=== PATIENT | male | born 1945 | race Caucasian/White ===

== ENCOUNTER 2024-12-26 06:58 | Emergency (ER) | payer MEDICARE, SELFPAY ==
[2024-12-26] VITALS (21 sets, daily range): BP systolic 123–154; BP diastolic 79–99; PULSE 88–101; TEMP 37; O2SAT 87–98; BMI 29.5
--- NOTE | 2024-12-26 07:15 | XR_ITS ---
The [address] [address] Patient Name: SARAH SCHULTZ MRN: [id number] date: 1945 Sex: M Assigned Patient Location: ED.MAIN Current Patient Location: ED.MAIN Accession/Order Number: [id number] Exam Date: 12/26/2024 07:52 Report Date: 12/26/2024 08:40 At the request of: GAVINO BECERRA MD Procedure: XR shoulder LT min 2V CLINICAL DATA: Unwitnessed fall PORTABLE AP ERECT CHEST 0800 hours COMPARISON: None There is shallow inspiration. There is also slight elevation of the right hemidiaphragm. Bibasilar atelectasis and/or scarring is noted. There is also suspected scarring at the right apex where apparent nodularity likely relates to asymmetric hypertrophy at the first costochondral junction. No sizable effusion or pneumothorax is seen. The heart is within normal limits for size. The aorta is mildly ectatic. No vascular congestion is identified. The bony thorax, as visualized appears intact. XR/XR shoulder LT min 2V IMPRESSION: ATELECTASIS AND SCARRING. LEFT SHOULDER - 2 views COMPARISON: None AP and Y views were obtained. There is osteopenia. No acute fracture or dislocation is noted. There is mild hypertrophy at the acromioclavicular and inferior glenohumeral joints. There is also minor degenerative change and adjacent soft tissue calcification at the greater tuberosity. There is apparent narrowing of the acromiohumeral interval and rotator cuff disease is not excluded basis of this exam. IMPRESSION: OSTEOPENIA AND DEGENERATIVE CHANGES. NO ACUTE BONY INJURY. Impression dictated by: Luda Pérez M.D. 12/26/2024 8:40 AM Dictation Location: [employer] Electronically authenticated by: [id number] Y Date: 12/26/2024 08:40
--- NOTE | 2024-12-26 07:15 | ECG_ITS ---
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[employer]: : 1945 Requested By: [id number] Order Number: [id number] Reading MD: OPAL HAGEN Measurements Intervals [place] Rate: 44 P: 56 NM: 236 QRS: -46 QRSD: 80 T: 57 QT: 552 QTc: 503 Interpretive Statements 1130 Sinus bradycardia 1470 with occasional supraventricular premature complexes 1570 with occasional ventricular premature complexes 2231 First degree AV block 3333 Anterolateral myocardial infarction, probably old 3633 Inferior myocardial infarction, probably old 8102 Low QRS voltage in chest leads 9150 abnormal ECG No previous ECG available for comparison Electronically Signed On 12-28-2024 13:32:46 EDT by OPAL HAGEN
--- NOTE | 2024-12-26 07:15 | CT_ITS ---
The [address] [address] Patient Name: SARAH SCHULTZ MRN: [id number] date: 1945 Sex: M Assigned Patient Location: ER Current Patient Location: [facility] Accession/Order Number: [id number] Exam Date: 12/26/2024 07:52 Report Date: 12/26/2024 08:47 At the request of: GAVINO BECERRA MD Procedure: CT cervical spine wo con CLINICAL DATA: Unwitnessed fall CT BRAIN WITHOUT CONTRAST: COMPARISON: None TECHNIQUE: Contiguous axial unenhanced images were obtained through the brain. This CT exam was performed using one or more following dose reduction techniques: Automated exposure control, adjustment of the mA and/or kV according to patient size, or use of iterative reconstruction technique. FINDINGS: There is generalized atrophy. The ventricles are prominent though midline in position. Normal pressure hydrocephalus is not excluded. Chronic microvascular changes are noted. There are no additional areas of abnormal attenuation. There is no hemorrhage, mass effect or extra-axial collections. There is a lobulated mass arising from the sella and extending into the suprasellar region. There is also invasion of the cavernous sinus on the left. This measures at least 2.6 x 2.0 x 2.8 cm in size. It may be a pituitary macroadenoma. The calvarium is intact. There is a small amount of fluid within the right maxillary and sphenoid sinuses. There is also mucosal thickening involving ethmoid air cells bilaterally. There is some carotid siphon plaque. CT/CT head/brain wo con IMPRESSION: ATROPHY AND SMALL VESSEL ISCHEMIC CHANGES. VENTRICULAR ENLARGEMENT. NORMAL PRESSURE HYDROCEPHALUS IS NOT EXCLUDED AND CLINICAL CORRELATION IS SUGGESTED. POTENTIAL PITUITARY MACROADENOMA. SINUS DISEASE. NO ACUTE INTRACRANIAL TRAUMA. CT CERVICAL SPINE WITHOUT CONTRAST WITH 3D RECONSTRUCTIONS: COMPARISON: None TECHNIQUE: Spiral axial unenhanced images were obtained through the cervical spine. Sagittal, coronal and 3D volume-rendered reconstructions were also reviewed. This CT exam was performed using one or more following dose reduction techniques: Automated exposure control, adjustment of the mA and/or kV according to patient size, or use of iterative reconstruction technique. FINDINGS: Alignment is maintained in the sagittal plane. No acute fractures are identified. The disc spaces are uniform. There is mild endplate spurring and cystic change. Facet disease is visualized, right side worse than left. The atlantoaxial relationship is maintained and there is additional degenerative change and mild pannus. Prevertebral soft tissue prominence is related to tortuous carotid arteries with associated atherosclerotic disease. The upper imaged lungs show no contributory findings. IMPRESSION: Degenerative changes. NO ACUTE BONY INJURY. Impression dictated by: Luda Pérez M.D. 12/26/2024 8:47 AM Dictation Location: [place] [address] Electronically authenticated by: [id number] Y Date: 12/26/2024 08:47
--- NOTE | 2024-12-26 07:15 | XR_ITS ---
The [address] [address] Patient Name: SARAH SCHULTZ MRN: [id number] date: 1945 Sex: M Assigned Patient Location: ED.MAIN Current Patient Location: ED.MAIN Accession/Order Number: [id number] Exam Date: 12/26/2024 07:52 Report Date: 12/26/2024 08:40 At the request of: GAVINO BECERRA MD Procedure: XR shoulder LT min 2V CLINICAL DATA: Unwitnessed fall PORTABLE AP ERECT CHEST 0800 hours COMPARISON: None There is shallow inspiration. There is also slight elevation of the right hemidiaphragm. Bibasilar atelectasis and/or scarring is noted. There is also suspected scarring at the right apex where apparent nodularity likely relates to asymmetric hypertrophy at the first costochondral junction. No sizable effusion or pneumothorax is seen. The heart is within normal limits for size. The aorta is mildly ectatic. No vascular congestion is identified. The bony thorax, as visualized appears intact. XR/XR chest 1V IMPRESSION: ATELECTASIS AND SCARRING. LEFT SHOULDER - 2 views COMPARISON: None AP and Y views were obtained. There is osteopenia. No acute fracture or dislocation is noted. There is mild hypertrophy at the acromioclavicular and inferior glenohumeral joints. There is also minor degenerative change and adjacent soft tissue calcification at the greater tuberosity. There is apparent narrowing of the acromiohumeral interval and rotator cuff disease is not excluded basis of this exam. IMPRESSION: OSTEOPENIA AND DEGENERATIVE CHANGES. NO ACUTE BONY INJURY. Impression dictated by: Luda Pérez M.D. 12/26/2024 8:40 AM Dictation Location: [employer] Electronically authenticated by: [id number] Y Date: 12/26/2024 08:40
--- NOTE | 2024-12-26 07:15 | CT_ITS ---
The [address] [address] Patient Name: SARAH SCHULTZ MRN: [id number] date: 1945 Sex: M Assigned Patient Location: ER Current Patient Location: .[facility] Accession/Order Number: [id number] Exam Date: 12/26/2024 07:52 Report Date: 12/26/2024 08:47 At the request of: GAVINO BECERRA MD Procedure: CT cervical spine wo con CLINICAL DATA: Unwitnessed fall CT BRAIN WITHOUT CONTRAST: COMPARISON: None TECHNIQUE: Contiguous axial unenhanced images were obtained through the brain. This CT exam was performed using one or more following dose reduction techniques: Automated exposure control, adjustment of the mA and/or kV according to patient size, or use of iterative reconstruction technique. FINDINGS: There is generalized atrophy. The ventricles are prominent though midline in position. Normal pressure hydrocephalus is not excluded. Chronic microvascular changes are noted. There are no additional areas of abnormal attenuation. There is no hemorrhage, mass effect or extra-axial collections. There is a lobulated mass arising from the sella and extending into the suprasellar region. There is also invasion of the cavernous sinus on the left. This measures at least 2.6 x 2.0 x 2.8 cm in size. It may be a pituitary macroadenoma. The calvarium is intact. There is a small amount of fluid within the right maxillary and sphenoid sinuses. There is also mucosal thickening involving ethmoid air cells bilaterally. There is some carotid siphon plaque. CT/CT cervical spine wo con IMPRESSION: ATROPHY AND SMALL VESSEL ISCHEMIC CHANGES. VENTRICULAR ENLARGEMENT. NORMAL PRESSURE HYDROCEPHALUS IS NOT EXCLUDED AND CLINICAL CORRELATION IS SUGGESTED. POTENTIAL PITUITARY MACROADENOMA. SINUS DISEASE. NO ACUTE INTRACRANIAL TRAUMA. CT CERVICAL SPINE WITHOUT CONTRAST WITH 3D RECONSTRUCTIONS: COMPARISON: None TECHNIQUE: Spiral axial unenhanced images were obtained through the cervical spine. Sagittal, coronal and 3D volume-rendered reconstructions were also reviewed. This CT exam was performed using one or more following dose reduction techniques: Automated exposure control, adjustment of the mA and/or kV according to patient size, or use of iterative reconstruction technique. FINDINGS: Alignment is maintained in the sagittal plane. No acute fractures are identified. The disc spaces are uniform. There is mild endplate spurring and cystic change. Facet disease is visualized, right side worse than left. The atlantoaxial relationship is maintained and there is additional degenerative change and mild pannus. Prevertebral soft tissue prominence is related to tortuous carotid arteries with associated atherosclerotic disease. The upper imaged lungs show no contributory findings. IMPRESSION: Degenerative changes. NO ACUTE BONY INJURY. Impression dictated by: Luda Pérez M.D. 12/26/2024 8:47 AM Dictation Location: [place] [address] Electronically authenticated by: [id number] Y Date: 12/26/2024 08:47
--- NOTE | 2024-12-26 07:18 | ED.GENADUL1 ---
HPI HPI - General Adult General Chief complaint: Weakness Stated complaint: confusion Time Seen by Provider: 12/26/24 07:04 Source: patient Mode of arrival: ambulance Limitations: altered mental status History of Present Illness HPI narrative: 79-year-old male presents to the emergency department by ambulance from [facility] for possible confusion. The patient has dementia and is not a good historian. His reported baseline is orientation x 1. It is not clear how the confusion is different today. There are no family members present either. No history is obtainable from the patient. Reportedly he fell yesterday, unwitnessed. Related Data Home Medications ?Medication ?Instructions ?Recorded ?Confirmed albuterol sulfate 0.63 mg/3 mL 0.63 mg inhalation Q6H PRN 12/26/24 12/26/24 solution for nebulization shortness of breath or wheezing amlodipine 5 mg tablet 5 mg PO .QD 12/26/24 12/26/24 aspirin 81 mg tablet,delayed 81 mg PO DAILY 12/26/24 12/26/24 release cyanocobalamin (vitamin B-12) 1,000 mcg PO DAILY 12/26/24 12/26/24 1,000 mcg capsule hydrocortisone 10 mg tablet 10 mg PO .QD 12/26/24 12/26/24 levothyroxine 50 mcg tablet 50 mcg PO .ACB 12/26/24 12/26/24 metoprolol succinate 25 mg 25 mg PO .QD 12/26/24 12/26/24 tablet,extended release 24 hr pantoprazole 40 mg tablet,delayed 40 mg PO .ACB 12/26/24 12/26/24 release polyethylene glycol 3350 17 gram 17 g PO DAILY 12/26/24 12/26/24 oral powder packet (Miralax) simvastatin 20 mg tablet 20 mg PO .QD 12/26/24 12/26/24 tramadol 50 mg tablet 50 mg PO BID 12/26/24 12/26/24 Allergies Allergy/AdvReac Type Severity Reaction Status Date / Time lisinopril Allergy Intermediate Rash Verified 12/26/24 07:01 shellfish derived Allergy Intermediate Rash Verified 12/26/24 07:02 Review of Systems ROS Narrative Not obtainable, dementia PFSH PFS Medical History (Updated 12/26/24 @ 08:57 by Dakota Samaniego MD) Falls frequently ?R29.6 - Repeated falls (ICD-10) Hyperlipidemia ?E78.5 - Hyperlipidemia, unspecified (ICD-10) Hypothyroid ?E03.9 - Hypothyroidism, unspecified (ICD-10) GERD (gastroesophageal reflux disease) ?K21.9 - Gastro-esophageal reflux disease without esophagitis (ICD-10) Hypertension ?I10 - Essential (primary) hypertension (ICD-10) TIA (transient ischemic attack) ?G45.9 - Transient cerebral ischemic attack, unspecified (ICD-10) Dementia ?F03.90 - Unspecified dementia, unspecified severity, without behavioral disturbance, psychotic disturbance, mood disturbance, and anxiety (ICD-10) Exam Narrative Exam Narrative: Nurses note and vital signs reviewed and patient is not hypoxic. General: The patient appears well and in no apparent distress. Patient is resting comfortably on cart. Skin: Warm, dry, no pallor noted. There is no rash noted. Head: Normocephalic, atraumatic Eye: Normal conjunctiva, no drainage Ears, Nose, Mouth, and Throat: oral mucosa is moist. Nares patent. Cardiovascular: Regular Rate and Rhythm Respiratory: Patient is in no distress, no accessory muscle use, lungs are clear to auscultation, no wheezing, rales or rhonchi GI: Soft and nontender Musculoskeletal: No palpable tenderness to his hips or elsewhere on his lower extremities. He is able to lift each leg up off of the bed without difficulty. The right arm has no palpable tenderness and he is able to lift it off the bed without difficulty. He seems to have discomfort in the left shoulder and will not lift his arm completely off the bed but will move his wrist and his elbow. No palpable tenderness in the wrist or the elbow on the left side. Neurological: Awake and alert. He knows his name. He does not know where he is or why he is here or the year. Psychiatric: Cooperative Constitutional Vital Signs, click to edit/add: Last Vital Signs Temp 98.6 F 12/26/24 07:02 Pulse 97 H 12/26/24 07:02 Resp 18 12/26/24 07:02 BP 154/99 H 12/26/24 07:02 Pulse Ox 98 12/26/24 07:02 O2 Del Method Room Air 12/26/24 07:02 Course Vital Signs Vital signs: Vital Signs Temperature 98.6 F 12/26/24 07:02 Pulse Rate 97 H 12/26/24 07:02 Respiratory Rate 18 12/26/24 07:02 Blood Pressure 154/99 H 12/26/24 07:02 Pulse Oximetry 98 12/26/24 07:02 Oxygen Delivery Method Room Air 12/26/24 07:02 Temperature 98.6 F 12/26/24 07:02 Pulse Rate 97 H 12/26/24 07:02 Respiratory Rate 18 12/26/24 07:02 Blood Pressure 154/99 H 12/26/24 07:02 Pulse Oximetry 98 12/26/24 07:02 Oxygen Delivery Method Room Air 12/26/24 07:02 Medical Decision Making MDM Narrative Medical decision making narrative: His workup here is negative. His is present and states that he is acting himself. She states that he has frequent falls and that is why he is at the [facility]. He is able to be released back. Treatment diagnosis and follow-up were discussed with the patient's . She also reports that he has chronic issues with his left shoulder from a rotator cuff injury. Differential Diagnosis Differential Diagnosis: Fall, UTI, intracranial hemorrhage, C-spine fracture Lab Data Lab results reviewed: Yes I reviewed the patient's lab results Labs: Lab Results 12/26/24 12/26/24 Range/Units 07: 08:06 WBC 12.1 H (4.0-11.0) 10^3/uL RBC 3.86 L (4.70-6.10) 10^6/uL Hgb 11.8 L (14.0-18.0) g/dL Hct 35.5 L (42.0-54.0) % MCV 92.0 (80.0-94.0) fL MCH 30.6 (25.9-34.0) pg MCHC 33.2 (29.9-35.2) g/dL RDW 13.8 (11.0-15.0) % Plt Count 244 (150-450) 10^3/uL MPV 11.0 (9.5-13.5) fL Seg Neuts % (Manual) 71.0 (43.0-75.0) Lymphocytes % (Manual) 13.0 L (20.5-60.0) % Monocytes % (Manual) 16.0 H (1.7-12.0) % Eosinophils % (Manual) 0.0 L (0.9-7.0) % Basophils % (Manual) 0.0 L (0.2-2.0) % Neutrophils # (Manual) 8.59 H (1.4-6.5) 10^3/uL Lymphocytes # (Manual) 1.57 (1.20-3.80) 10^3/uL Monocytes # (Manual) 1.93 H (0.30-0.80) 10^3/uL Eosinophils # (Manual) 0.00 (0.00-0.70) 10^3/uL Basophils # (Manual) 0.00 (0.00-0.10) 10^3/uL Sodium 138 (136-145) mmol/L Potassium 4.2 (3.5-5.1) mmol/L Chloride 101 (98-107) mmol/L Carbon Dioxide 26.4 (21.0-32.0) mmol/L Anion Gap 14.8 BUN 13.0 (7.0-18.0) mg/dL Creatinine 1.39 H (0.70-1.30) mg/dL Est GFR ( Amer) 60 (>=60 mL/min/1.73m^2) Est GFR (Non-Af Amer) 49 L (>=60 mL/min/1.73m^2) BUN/Creatinine Ratio 9.4 Glucose 118 H (74-106) mg/dL Calcium 9.5 (8.5-10.1) mg/dL Urine Color [place] A (YELLOW) Urine Clarity Clear (CLEAR) Urine pH 8.0 (5.0-9.0) Ur Specific [place] 1.015 (1.005-1.025) Urine Protein 30 A (NEG/TRACE) mg/dL Urine Glucose (UA) Negative (NEGATIVE) mg/dL Urine Ketones Negative (NEGATIVE) mg/dL Urine Occult Blood Large A (NEGATIVE) Urine Nitrite Negative (NEGATIVE) Urine Bilirubin Negative (NEGATIVE) Urine Urobilinogen 1.0 (0.2-1.0) EU/dL Ur Leukocyte Esterase Trace A (NEGATIVE) Urine RBC 75-100 A (0-2) #/HPF Urine WBC 0-2 A (NONE SEEN) #/HPF Ur Squamous Epith Cells Rare (NONE/RARE) #/LPF Urine Crystals None seen (None Seen) #/HPF Urine Bacteria Trace A (NONE SEEN) #/HPF Urine Casts None seen (NONE SEEN) #/LPF Urine Mucus None seen (NONE SEEN) Ur Culture Indicated? No Imaging Data Chest x-ray: Radiologist's impression: ITS Impressions Cervical Spine CT 12/26/24 07:15 IMPRESSION: ATROPHY AND SMALL VESSEL ISCHEMIC CHANGES. VENTRICULAR ENLARGEMENT. NORMAL PRESSURE HYDROCEPHALUS IS NOT EXCLUDED AND CLINICAL CORRELATION IS SUGGESTED. POTENTIAL PITUITARY MACROADENOMA. SINUS DISEASE. NO ACUTE INTRACRANIAL TRAUMA. CT CERVICAL SPINE WITHOUT CONTRAST WITH 3D RECONSTRUCTIONS: COMPARISON: None TECHNIQUE: Spiral axial unenhanced images were obtained through the cervical spine. Sagittal, coronal and 3D volume-rendered reconstructions were also reviewed. This CT exam was performed using one or more following dose reduction techniques: Automated exposure control, adjustment of the mA and/or kV according to patient size, or use of iterative reconstruction technique. FINDINGS: Alignment is maintained in the sagittal plane. No acute fractures are identified. The disc spaces are uniform. There is mild endplate spurring and cystic change. Facet disease is visualized, right side worse than left. The atlantoaxial relationship is maintained and there is additional degenerative change and mild pannus. Prevertebral soft tissue prominence is related to tortuous carotid arteries with associated atherosclerotic disease. The upper imaged lungs show no contributory findings. IMPRESSION: Degenerative changes. NO ACUTE BONY INJURY. Impression dictated by: Luda Pérez M.D. 12/26/2024 8:47 AM Dictation Location: [employer] Electronically authenticated by: [id number] Y Date: 12/26/2024 08:47 Chest X-Ray 12/26/24 07:15 IMPRESSION: ATELECTASIS AND SCARRING. LEFT SHOULDER - 2 views COMPARISON: None AP and Y views were obtained. There is osteopenia. No acute fracture or dislocation is noted. There is mild hypertrophy at the acromioclavicular and inferior glenohumeral joints. There is also minor degenerative change and adjacent soft tissue calcification at the greater tuberosity. There is apparent narrowing of the acromiohumeral interval and rotator cuff disease is not excluded basis of this exam. IMPRESSION: OSTEOPENIA AND DEGENERATIVE CHANGES. NO ACUTE BONY INJURY. Impression dictated by: Luda Pérez M.D. 12/26/2024 8:40 AM Dictation Location: [employer] Electronically authenticated by: [id number] Y Date: 12/26/2024 08:[address] 12/26/24 07:15 IMPRESSION: ATROPHY AND SMALL VESSEL ISCHEMIC CHANGES. VENTRICULAR ENLARGEMENT. NORMAL PRESSURE HYDROCEPHALUS IS NOT EXCLUDED AND CLINICAL CORRELATION IS SUGGESTED. POTENTIAL PITUITARY MACROADENOMA. SINUS DISEASE. NO ACUTE INTRACRANIAL TRAUMA. CT CERVICAL SPINE WITHOUT CONTRAST WITH 3D RECONSTRUCTIONS: COMPARISON: None TECHNIQUE: Spiral axial unenhanced images were obtained through the cervical spine. Sagittal, coronal and 3D volume-rendered reconstructions were also reviewed. This CT exam was performed using one or more following dose reduction techniques: Automated exposure control, adjustment of the mA and/or kV according to patient size, or use of iterative reconstruction technique. FINDINGS: Alignment is maintained in the sagittal plane. No acute fractures are identified. The disc spaces are uniform. There is mild endplate spurring and cystic change. Facet disease is visualized, right side worse than left. The atlantoaxial relationship is maintained and there is additional degenerative change and mild pannus. Prevertebral soft tissue prominence is related to tortuous carotid arteries with associated atherosclerotic disease. The upper imaged lungs show no contributory findings. IMPRESSION: Degenerative changes. NO ACUTE BONY INJURY. Impression dictated by: Luda Pérez M.D. 12/26/2024 8:47 AM Dictation Location: [employer] Electronically authenticated by: [id number] Y Date: 12/26/2024 08:47 Shoulder X-Ray 12/26/24 07:15 IMPRESSION: ATELECTASIS AND SCARRING. LEFT SHOULDER - 2 views COMPARISON: None AP and Y views were obtained. There is osteopenia. No acute fracture or dislocation is noted. There is mild hypertrophy at the acromioclavicular and inferior glenohumeral joints. There is also minor degenerative change and adjacent soft tissue calcification at the greater tuberosity. There is apparent narrowing of the acromiohumeral interval and rotator cuff disease is not excluded basis of this exam. IMPRESSION: OSTEOPENIA AND DEGENERATIVE CHANGES. NO ACUTE BONY INJURY. Impression dictated by: Luda Pérez M.D. 12/26/2024 8:40 AM Dictation Location: [employer] Electronically authenticated by: [id number] Y Date: 12/26/2024 08:40 ECG Data Attestation: I personally reviewed and interpreted this ECG as follows: (EKG on my interpretation shows sinus rhythm with a rate of 100. EKG computer had read a rate of 44 and this is not correct.) Discharge Plan Discharge Chief Complaint: Weakness Clinical Impression: Fall Patient Disposition: Home, Self-Care Time of Disposition Decision: 08:57 Condition: Good Mode of Transportation: EMS Prescriptions / Home Meds: No Action albuterol sulfate 0.63 mg/3 mL solution for nebulization 0.63 mg inhalation Q6H PRN (Reason: shortness of breath or wheezing) amlodipine 5 mg tablet 5 mg PO .QD hydrocortisone 10 mg tablet 10 mg PO .QD levothyroxine 50 mcg tablet 50 mcg PO .ACB metoprolol succinate 25 mg tablet extended release 24 hr 25 mg PO .QD pantoprazole 40 mg tablet,delayed release (DR/EC) 40 mg PO .ACB simvastatin 20 mg tablet 20 mg PO .QD tramadol 50 mg tablet 50 mg PO BID aspirin 81 mg tablet,delayed release (DR/EC) 81 mg PO DAILY cyanocobalamin (vitamin B-12) 1,000 mcg capsule 1,000 mcg PO DAILY polyethylene glycol 3350 [Miralax] 17 gram powder in packet 17 g PO DAILY Print Language: Occitan Instructions: Fall Prevention for Older Adults (ED) Referrals: EVI SCOTT DO [Primary Care Provider, Family Practice] - 1 week
[2024-12-26 07:44] LABS: Hematocrit 35.5 % (42.0-54.0); Hemoglobin 11.8 g/dL (14.0-18.0); Mean Corpuscular HGB Conc 33.2 g/dL (29.9-35.2); Mean Corpuscular Hemoglobin 30.6 pg (25.9-34.0); Mean Corpuscular Volume 92.0 fL (80.0-94.0); Platelet Count 244 10^3/uL (150-450); Red Blood Count 3.86 10^6/uL (4.70-6.10); White Blood Count 12.1 10^3/uL (4.0-11.0)
[2024-12-26 07:51] LABS: Anion Gap 14.8; Blood Urea Nitrogen 13.0 mg/dL (7.0-18.0); Calcium 9.5 mg/dL (8.5-10.1); Carbon Dioxide 26.4 mmol/L (21.0-32.0); Chloride 101 mmol/L (98-107); Estimated GFR (African America 60 (>=60 mL/min/1.73m^2); Estimated GFR (Non-African Ame 49 (>=60 mL/min/1.73m^2); Glucose 118 mg/dL (74-106); Potassium 4.2 mmol/L (3.5-5.1); Sodium 138 mmol/L (136-145)
[2024-12-26 08:07] LABS: Basophils Abs Manual 0.00 10^3/uL (0.00-0.10); Basophils Percent Manual 0.0 % (0.2-2.0); Eosinophils Absolute Manual 0.00 10^3/uL (0.00-0.70); Eosinophils Percent Manual 0.0 % (0.9-7.0); Lymphocytes Absolute Manual 1.57 10^3/uL (1.20-3.80); Lymphocytes Percent Manual 13.0 % (20.5-60.0); Monocytes Absolute Manual 1.93 10^3/uL (0.30-0.80); Monocytes Percent Manual 16.0 % (1.7-12.0); Segmented Neut Absolute Manual 8.59 10^3/uL (1.4-6.5); Segmented Neutrophils % Manual 71.0 (43.0-75.0)
[2024-12-26 08:26] LABS: Glucose Urine UA NEGATIVE (NEGATIVE)
[2024-12-26 08:31] LABS: Cast Seen? NONE SEEN #/LPF (NONE SEEN); Crystals Seen? None Seen #/HPF (None Seen); Urine Culture Indicated NO
--- NOTE | 2024-12-26 10:00 | PC.NURSE ---
report called to Sharon at [facility]
--- NOTE | 2024-12-26 10:28 | PC.NURSE ---
report given to Fina EMT with [facility], here for transportation
== END 2024-12-26 10:29 | disposition home or self-care (01) ==
PROVIDERS: Emergency Provider Emergency Medicine; PCP Family Medicine
DX: Z04.3 Encounter for examination and observation following other accident (principal); Z91.81 History of falling; F03.90 Unspecified dementia, unspecified severity, without behavioral disturbance, psychotic disturbance, mood disturbance, and anxiety
CPT/HCPCS: 36415; 70450; 71045; 72125; 73030; 76376; 80048; 81001; 85007; 85027; 93005; 99285